=== PATIENT | male | born 1960 | race Caucasian/White ===

== ENCOUNTER 2019-05-18 17:39 | Inpatient (IN) | payer MEDICARE, MEDICAID ==
[~2019-05-18] VITALS: Ht 167.6 cm; Wt 67.1 kg
[2019-05-18 19:37] LABS: EOSINOPHILS % (AUTO) 3.8 % (1.0-6.0); HEMATOCRIT 38.2 % (41-53); HEMOGLOBIN 13.3 g/dL (13.5-17.5); LYMPHOCYTES # (AUTO) 2.7 K/uL (1.0-4.8); MEAN CORPUSCULAR HGB CONC 34.8 G/dL (31.0-37.0); MEAN CORPUSCULAR VOLUME 101 fL (80-100); MONOCYTES # (AUTO) 0.7 K/uL (0.1-1.0); MONOCYTES % (AUTO) 8.5 % (2.0-9.0); NEUTROPHILS % (AUTO) 51.7 % (40.0-70.0); PLATELET COUNT (AUTO) 276 K/uL (150-450); RED CELL DISTRIBUTION WIDTH 13.1 % (11.5-14.5)
[2019-05-18] MEDS ORDERED: HALOPERIDOL 5 MG TABLET PO ONE (19:45)
[2019-05-18] MEDS ORDERED: LORazepam 1 MG TABLET PO ONE (19:45)
[2019-05-18] MEDS ORDERED: MICONAZOLE NITRATE 2% 30 GM CREAM TP ONE (19:45)
[2019-05-18] MEDS ORDERED: DiphenhydrAMINE HCL 25 MG CAPSULE PO ONE (19:45)
[2019-05-18] MEDS ORDERED: TERBINAFINE HCL 250 MG TABLET PO ONE (19:45)
[2019-05-18 19:47] LABS: ANION GAP 8 mmol/L (8-16); CALCIUM, TOTAL 9.2 mg/dL (8.8-10.5); CARBON DIOXIDE 26 mmol/L (22-29); CHLORIDE 108 mmol/L (98-107); CREATININE 0.64 mg/dL (0.60-1.30); GLOMERULAR FILTR. RATE CALC > 60 mL/min (>60); GLUCOSE,RANDOM 107 mg/dL (70-110); POTASSIUM 4.6 mmol/L (3.5-5.1); SODIUM SERUM 142 mmol/L (136-145); UREA NITROGEN, BLOOD 26 mg/dL (7-18)
[2019-05-18 19:53] LABS: ALANINE AMINOTRANSFERASE 32 U/L (12-78); ALBUMIN 3.4 g/dL (3.4-5.0); ALKALINE PHOSPHATASE 83 U/L (46-116); ASPARTATE AMINOTRANSFERASE 19 U/L (15-37); BILIRUBIN,TOTAL 0.1 mg/dL (0.1-1.0); TOTAL PROTEIN, SERUM 6.1 g/dL (6.4-8.2)
[2019-05-18] MEDS ORDERED: RisperiDONE 1 MG TABLET PO ONE (20:15)
[2019-05-18 22:19] LABS: AMPHET/METH SCREEN,URINE NEGATIVE (NEGATIVE); BARBITURATE SCREEN, URINE NEGATIVE (NEGATIVE); BENZODIAZEPINES SCREEN,URINE NEGATIVE (NEGATIVE); CANNABINOID SCREEN,URINE NEGATIVE (NEGATIVE); COCAINE SCREEN,URINE NEGATIVE (NEGATIVE); METHADONE SCREEN, URINE NEGATIVE (NEGATIVE); OPIATE SCREEN,URINE NEGATIVE (NEGATIVE)
[2019-05-18 22:38] LABS: PHENCYCLIDINE SCREEN,URINE NEGATIVE (NEGATIVE)
[2019-05-18] MEDS ORDERED: HALOPERIDOL 5 MG TABLET PO PRN (22:45)
[2019-05-19 01:34] VITALS: BP 107/66
[2019-05-19] MEDS ORDERED: INFLUENZA VIRUS VACCINE QVS 2019-20 (3YR+)/PF 60 MCG/0.5 ML SYRINGE IM ONE (03:30)
[2019-05-19] MEDS ORDERED: PNEUMOCOCCAL VACCINE POLYVALENT 0.5 ML VIAL [PPSV23] IM ONE (03:45)
[2019-05-19 08:13] VITALS: BP 132/88
[2019-05-19 16:02] VITALS: BP 125/86
[2019-05-19] MEDS: OLANZapine 5 MG TABLET PO SCH (16:25)
[2019-05-20 00:08] VITALS: BP 131/84
[2019-05-20] MEDS: ZOLPIDEM TARTRATE 10 MG TABLET PO PRN ×2 (00:11→22:33)
[2019-05-20] MEDS: LORazepam 2 MG TABLET PO PRN (04:01)
[2019-05-20 08:03] VITALS: BP 120/61
[2019-05-20] MEDS: NICOTINE 14 MG/24 HOUR PATCH TD SCH (08:35)
[2019-05-20] MEDS: OLANZapine 5 MG TABLET PO SCH ×2 (08:35→16:19)
[2019-05-20 09:54] LABS: CHOL/HDL RATIO 2.5 (4.2-7.3)
[2019-05-20 16:05] VITALS: BP 124/70
[2019-05-20] MEDS ORDERED: CLOTRIMAZOLE 1% 10 ML SOLUTION TP SCH (17:00)
[2019-05-21 00:02] VITALS: BP 127/84
[2019-05-21 08:11] VITALS: BP 139/99
[2019-05-21] MEDS: NICOTINE 14 MG/24 HOUR PATCH TD SCH (08:12)
[2019-05-21] MEDS: OLANZapine 5 MG TABLET PO SCH ×2 (08:12→16:31)
[2019-05-21] MEDS: CLOTRIMAZOLE 1% 10 ML SOLUTION TP SCH ×2 (10:54→18:12)
[2019-05-21 16:38] VITALS: BP 140/78
[2019-05-21] MEDS: ZOLPIDEM TARTRATE 10 MG TABLET PO PRN (21:18)
[2019-05-22 00:24] VITALS: BP 124/80
[2019-05-22 08:09] VITALS: BP 135/85
[2019-05-22] MEDS: CLOTRIMAZOLE 1% 15 GM CREAM TP SCH ×2 (08:32→16:37)
[2019-05-22] MEDS: NICOTINE 14 MG/24 HOUR PATCH TD SCH (08:32)
[2019-05-22] MEDS: OLANZapine 5 MG TABLET PO SCH ×2 (08:32→16:37)
[2019-05-22 16:17] VITALS: BP 152/89
[2019-05-22 21:27] VITALS: BP 141/84
[2019-05-22] MEDS: ZOLPIDEM TARTRATE 10 MG TABLET PO PRN (22:03)
[2019-05-23 02:09] VITALS: BP 133/92
[2019-05-23] MEDS: OLANZapine 5 MG TABLET PO SCH ×2 (08:51→16:28)
[2019-05-23] MEDS: NICOTINE 14 MG/24 HOUR PATCH TD SCH (08:52)
[2019-05-23] MEDS: CLOTRIMAZOLE 1% 15 GM CREAM TP SCH ×2 (08:53→16:29)
[2019-05-23] MEDS: LORazepam 2 MG TABLET PO PRN (09:28)
[2019-05-23 09:35] VITALS: BP 136/82
[2019-05-23 16:11] VITALS: BP 127/87
[2019-05-23] MEDS: ZOLPIDEM TARTRATE 10 MG TABLET PO PRN (21:13)
[2019-05-24 00:33] VITALS: BP 116/78
[2019-05-24 08:06] VITALS: BP 139/87
[2019-05-24] MEDS: NICOTINE 14 MG/24 HOUR PATCH TD SCH (08:19)
[2019-05-24] MEDS: OLANZapine 5 MG TABLET PO SCH (08:19)
[2019-05-24] MEDS: CLOTRIMAZOLE 1% 15 GM CREAM TP SCH (09:14)
[2019-05-24] MEDS ORDERED: OLAN5TAB2 PO (10:53)
== END 2019-05-24 14:25 | disposition home or self-care (01) | DRG 885 ==
LOC: EMS 17:43 → B2X 21:00
PROVIDERS: ADMIT Psychiatry & Neurology Psychiatry; ATTEND Psychiatry & Neurology Psychiatry
PROC: 3E02340 Introduction of Influenza Vaccine into Muscle, Percutaneous Approach (ICD-10-PCS; principal; 2019-05-19)
PROC: 3E0234Z Introduction of Serum, Toxoid and Vaccine into Muscle, Percutaneous Approach (ICD-10-PCS; 2019-05-19)
DX: F20.0 Paranoid schizophrenia (principal); B35.1 Tinea unguium; B35.3 Tinea pedis; D64.9 Anemia, unspecified; F10.10 Alcohol abuse, uncomplicated; Z79.899 Other long term (current) drug therapy; Z71.41 Alcohol abuse counseling and surveillance of alcoholic; F17.200 Nicotine dependence, unspecified, uncomplicated; Z71.6 Tobacco abuse counseling; I10 Essential (primary) hypertension; K59.00 Constipation, unspecified; Z59.0 Homelessness; Z23 Encounter for immunization
CPT/HCPCS: 90686; 90732; G0480